=== PATIENT | male | born 1945 ===

== ENCOUNTER 2020-12-05 15:00 | Outpatient (CLI) | payer OTHER | END 2020-12-05 19:00 | disposition home or self-care (01) | LOC: PPH VACUNA 15:00 | PROVIDERS: ATTEND Emergency Medicine Pediatric Emergency Medicine | DX: Z23 Encounter for immunization (principal) ==

== ENCOUNTER 2025-02-25 05:54 | Day surgery (SDC) | payer OTHER ==
[~2025-02-25] VITALS: Ht 243.8 cm; Wt 5.0 kg
[~2025-02-25 05:54] MED LIST: ASA81 MG PO; COZAAR50 MG PO; DETROL; RYTHMOL; TAMS0.4C; TOPROL XL100 M1 PO; VITAMIN D310 MCG/1 M
[2025-02-25] MEDS ORDERED: CEFAZOLIN SODIUM 1,000 MG VIAL ONE (06:42)
[2025-02-25] MEDS ORDERED: BUPIVACAINE HCL/MPF 0.5% 30ML VIAL ONE (07:10)
[2025-02-25] MEDS ORDERED: LIDOCAINE HCL 1%/EPINEPHRINE 20ML VIAL IJ ONE ×2 (07:11→08:30)
[2025-02-25] MEDS ORDERED: KETO10TA2 PO (07:44)
[2025-02-25] MEDS ORDERED: MIRALAX17 GM PO (07:44)
[2025-02-25] MEDS ORDERED: TYLENOL ARTHRI650 MG PO (07:44)
[2025-02-25] MEDS ORDERED: TRAMADOL HCL50 MG PO (07:44)
[2025-02-25] MEDS ORDERED: CEFAZOLIN SODIUM 1,000 MG VIAL IV ONE (08:15)
[2025-02-25] MEDS ORDERED: BUPIVACAINE HCL 30 ML VIAL IJ ONE (08:15)
[2025-02-25 15:54] VITALS: BP 158/65; O2SAT 100
== END 2025-02-25 13:55 | disposition home or self-care (01) ==
LOC: CIR.AMB 05:54
PROVIDERS: ATTEND Surgery
DX: K43.6 Other and unspecified ventral hernia with obstruction, without gangrene (principal); K40.91 Unilateral inguinal hernia, without obstruction or gangrene, recurrent; H52.209 Unspecified astigmatism, unspecified eye
CPT/HCPCS: 49594; 49651; C1781